=== PATIENT | female | born 1945 | race Caucasian/White ===

== ENCOUNTER 2017-06-01 09:29 | Day surgery (SDC) | payer OTHER ==
[2017-05-31 11:28] VITALS: BMI 30.1
[~2017-06-01 09:29] MED LIST: ACETAMINOPHEN 325 MG TABLET (FP) PO PRN
[2017-06-01] MEDS ORDERED: CIPROFLOXACIN 0.3% EYE DROPS 5 ML BOTTLE ONE (09:43)
[2017-06-01] MEDS ORDERED: PHENYLEPHRINE 2.5% OPHTH SOLN 15 ML BOTTLE ONE (09:43)
[2017-06-01] MEDS ORDERED: CYCLOPENTOLATE HCL 1% OPHTH SOLN 2 ML BOTTLE ONE (09:43)
[2017-06-01] MEDS ORDERED: TROPICAMIDE 1% OPHTH SOLN 15 ML BOTTLE ONE (09:43)
[2017-06-01] MEDS ORDERED: FLURBIPROFEN 0.03% OPHTH SOLN 2.5 ML BOTTLE ONE (09:43)
[2017-06-01] MEDS: CIPROFLOXACIN HCL 0.3% OPHTH 2.5ML BOTTLE OP SCH ×3 (09:45→10:00)
[2017-06-01] MEDS: CYCLOPENTOLATE HCL 1% OPHTH SOLN 2 ML BOTTLE OP SCH ×3 (09:45→10:00)
[2017-06-01] MEDS: PHENYLEPHRINE 2.5% OPHTH SOLN 15 ML BOTTLE OP SCH ×3 (09:45→10:00)
[2017-06-01] MEDS: TROPICAMIDE 1% OPHTH SOLN 15 ML BOTTLE OP SCH ×3 (09:45→10:00)
[2017-06-01] MEDS: FLURBIPROFEN 0.03% OPHTH SOLN 2.5 ML BOTTLE OP SCH ×3 (09:45→10:00)
[2017-06-01 09:59] VITALS: TEMP 97.7
[2017-06-01] MEDS ORDERED: MIDAZOLAM HCL 2 MG/2 ML SINGLE DOSE VIAL ONE (10:39)
[2017-06-01] MEDS ORDERED: TETRACAINE 0.5% OPHTH SOLN 2 ML BOTTLE OS ONE (10:43)
[2017-06-01] MEDS ORDERED: POVIDONE-IODINE 5% OPHTHALMIC PREP 30 ML SOLUTION OS ONE (10:58)
[2017-06-01] MEDS ORDERED: CHONDROITIN SU A/HYALUR SOD 1 KIT IO ONE (11:09)
[2017-06-01] MEDS ORDERED: BSS (NA/CA/MG/K) BALANCED SALT SOLUTION OPHTH SOLN 15 ML BOTTLE OS ONE (11:09)
[2017-06-01] MEDS ORDERED: LIDOCAINE HCL 1% PRESERVATIVE FREE - 30ML VIAL IO ONE (11:09)
[2017-06-01] MEDS ORDERED: EPINEPHrine/PF 1 MG/1 ML (1:1,000) AMPULE IO ONE (11:16)
[2017-06-01 13:03] VITALS: BP 110/61; PULSE 71
--- NOTE | 2017-06-01 21:17 | OP ---
DATE OF OPERATION: 06/01/2017 PREOPERATIVE DIAGNOSIS: Cataract, left eye. ASSOCIATED DIAGNOSIS: Astigmatism. POSTOPERATIVE DIAGNOSIS: Cataract, left eye. PROCEDURE: Phacoemulsification with posterior chamber intraocular lens implantation with Toric lens. The lens used SN60A T3 power of 22.5 diopters, serial number [id number]. ANESTHESIA: Topical, MAC. COMPLICATIONS: None. DESCRIPTION OF PROCEDURE: The patient was brought to the operating room and correctly identified along with the operative site. The 3, 9, and 6 o'clock positions were then marked with the patient sitting upright. She was then reclined, and the motta were reinforced under the microscope. She was then prepped and draped in the usual sterile fashion including 5% Betadine solution in the conjunctival sac and an eyelid drape. An eyelid speculum was then placed into the left eye. The 75-degree and 10 degree axes were then marked on the cornea using a Toric marker. A paracentesis port was created. Intracameral lidocaine was given. The viscoelastic was injected to inflate the anterior chamber, and a temporal clear cornea wound was created at the 10 degrees axis temporally. A continuous circular capsulorrhexis was performed. The nucleus then hydrodissected with BSS and removed with phacoemulsification via divide and conquer approach. The remaining cortical material was irrigated and aspirated from the eye. Viscoelastic was then injected to inflate the capsular bag, and the lens was injected into the capsular bag and rotated until it was approximately 15 degrees from its final position. The viscoelastic was then irrigated and aspirated from the eye, and using the irrigation and aspiration tip, the lens was rotated into its final position. All wounds were then stromally hydrated, and using a BSS cannula to fill the anterior chamber, all wounds were tested and found to be watertight. The intraocular lens was noted to be at its correct position, aligned with the corneal markings. No suture was placed. Topical vancomycin given, the eye patched and shielded, and the patient discharged from the operating room in a stable condition. SHYAM WELSH M.D. [id number] MTDD
== END 2017-06-01 12:20 | disposition home or self-care (01) ==
LOC: JASU-SURG 09:29
PROVIDERS: ATTEND Ophthalmology
PROC: 08RK3JZ Replacement of Left Lens with Synthetic Substitute, Percutaneous Approach (ICD-10-PCS; principal; 2017-06-01 11:00)
DX: H26.9 Unspecified cataract (principal); H52.202 Unspecified astigmatism, left eye

== ENCOUNTER 2017-08-25 19:04 | Emergency (ER) | payer OTHER ==
[2017-08-25 19:33] VITALS: BP 142/90; PULSE 73; TEMP 97.6; BMI 29.0
--- NOTE | 2017-08-25 19:51 | PDOC ---
History of Present Illness - General History Source: Patient Exam Limitations: No Limitations - History of Present Illness Initial Comments: 08/25/17 19:52 The patient is a 72 year old female, with a significant PMH of hypertension and arthritis, who presents to the emergency department via walk-in from urgent care with left leg swelling and left foot rash. The patient states she returned home from a flight from [place] yesterday around 3 pm. The patient states while leaving the airport in a wheelchair, secondary to hip pain from her arthritis, her friend noticed her left leg was swollen and noticed a discoloration on her left foot. The patient states she went to urgent care for evaluation of the left leg swelling and left foot rash who advised the patient to come to the ED secondary to the left leg swelling and recent immobilization. The patient denies any lower extremity pain. 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 As per the left foot rash the patient states the rash is not itchy and states she did not notice the discoloration before her trip. The patient states while in [place] she did a lot of walking with a cane. The patient denies any recent surgeries. The patient denies history of blood clots. The patient denies any familial history of cancer. The patient denies chest pain, shortness of breath, calf tenderness, headache and dizziness. Denies fever, chills, nausea, vomit, diarrhea and constipation. Denies dysuria, frequency, urgency and hematuria. Allergies: NKA Social History: None Smoker Surgical History: Cataract surgery in May PCP: Dr. Inocencia Owens <Uzair Elliott - Last Filed: 08/25/17 21:21> <Birgit Black - Last Filed: 08/26/17 01:47> - General Chief Complaint: Edema Stated Complaint: LEFT LOWER LEG SWELLING Time Seen by Provider: 08/25/17 19:14 Past History <Uzair Elliott - Last Filed: 08/25/17 21:21> - Past Medical History Anemia: No Asthma: No Cancer: No Cardiac Disorders: No CVA: No COPD: No CHF: No Dementia: No Diabetes: No GI Disorders: Yes (gerd) Disorders: No HTN: Yes Hypercholesterolemia: No Liver Disease: No Seizures: No Thyroid Disease: No Other medical history: ARTHRITIS - Suicide/Smoking/Psychosocial Hx Smoking History: Never smoked Have you smoked in the past 12 months: No Hx Alcohol Use: No Drug/Substance Use Hx: No Substance Use Type: None <Birgit Black - Last Filed: 08/26/17 01:47> - Past Medical History Allergies/Adverse Reactions: Allergies Allergy/AdvReac Type Severity Reaction Status Date / Time No Known Drug Allergies Allergy Verified 08/25/17 19:18 Home Medications: Ambulatory Orders Aspirin Coated [Ecotrin -] 81 mg PO DAILY 01/23/13 Calcium Carbonate/Vitamin D3 [Calcium 600-Vit D3 200 Tablet] 1 cap PO DAILY Cranberry Conc/Ascorbic Acid [Cranberry 12,600 mg Softgel] 1 each PO DAILY 01/23 Losartan/Hydrochlorothiazide [Losartan-Hctz 100-25 mg Tab] 1 each PO DAILY 01/23 Beta-Carotene(A) W-C and E/Min [Ocuvite (Nf)] 1 tab PO DAILY 05/31/17 Meloxicam 15 mg PO PRN 05/31/17 Pantoprazole Sodium 40 mg PO PRN PRN 05/31/17 Acetaminophen W/ Codeine #3 [Tylenol # 3 -] 1 tab PO Q6H PRN 08/25/17 Ibuprofen [Advil -] 200 mg PO TID PRN 08/25/17 Review of Systems - Review of Systems Comments:: 08/25/17 19:52 GENERAL/CONSTITUTIONAL: No fever or chills. No weakness. HEAD, EYES, EARS, NOSE AND THROAT: No change in vision. No ear pain or discharge. No sore throat. CARDIOVASCULAR: +Left leg swelling. No chest pain or shortness of breath. RESPIRATORY: No cough, wheezing, or hemoptysis. GASTROINTESTINAL: No nausea, vomiting, diarrhea or constipation. GENITOURINARY: No dysuria, frequency, or change in urination. MUSCULOSKELETAL: No joint or muscle swelling or pain. No neck or back pain. SKIN: +Left foot rash. NEUROLOGIC: No headache, vertigo, loss of consciousness, or change in strength/ sensation. ENDOCRINE: No increased thirst. No abnormal weight change. HEMATOLOGIC/LYMPHATIC: No anemia, easy bleeding, or history of blood clots. ALLERGIC/IMMUNOLOGIC: No hives or skin allergy. <Uzair Elliott - Last Filed: 08/25/17 21:21> *Physical Exam - Vital Signs Last Vital Signs Temp Pulse Resp BP Pulse Ox 97.6 F 73 16 142/90 98 08/25/17 19:05 08/25/17 19:05 08/25/17 19:05 08/25/17 19:05 08/25/17 19:05 - Physical Exam Comments: 08/25/17 19:52 GENERAL: Awake, alert, and fully oriented, in no acute distress HEAD: No signs of trauma EYES: PERRLA, EOMI, sclera anicteric, conjunctiva clear ENT: Auricles normal inspection, hearing grossly normal, nares patent, oropharynx clear without exudates. Moist mucosa NECK: Normal ROM, supple, no lymphadenopathy, JVD, or masses LUNGS: Breath sounds equal, clear to auscultation bilaterally. No wheezes, and no crackles HEART: Regular rate and rhythm, normal S1 and S2, no murmurs, rubs or gallops ABDOMEN: Soft, nontender, normoactive bowel sounds. No guarding, no rebound. No masses EXTREMITIES: (+) 1+ non pitting edema of the left distal lower leg and ankle. (+ ) Mild erythema. No tenderness or cords palpated. No proximal calf or popliteal tenderness. Normal range of motion. No clubbing or cyanosis. NEUROLOGICAL: Cranial nerves II through XII grossly intact. Normal speech, normal gait SKIN: (+) There is a fine mildly scaly rash of the anterior aspect of the anterior ankle. Warm, Dry, normal turgor. <Uzair Elliott - Last Filed: 08/25/17 21:21> - Vital Signs Last Vital Signs Temp Pulse Resp BP Pulse Ox 97.6 F 73 16 142/90 98 08/25/17 19:05 08/25/17 19:05 08/25/17 19:05 08/25/17 19:05 08/25/17 19:05 <Birgti Black - Last Filed: 08/26/17 01:47> ED Treatment Course - RADIOLOGY Radiograph Interpretation: 08/25/17 21:21 EXAM#: TYPE/EXAM: RESULT: [id number] US/DUPLEX VASCUL US-1 LEG HISTORY PROVIDED: Pain and swelling left lower extremity. Real time and doppler evaluation of the left lower extremity demonstrates the following: There is no evidence of deep venous thrombosis within the common, deep and superficial femoral veins, as well as the popliteal and posterior tibial veins. The greater saphenous vein is also patent. These veins are fully compressible, as well. There is a small Bland's cyst within the popliteal fossa measuring 1.7 x 1.1 x 0.5 cm. IMPRESSION: 1. No evidence of deep venous thrombosis. 2. Small Bland's cyst. Reported By: Pedro Kuo MD <Uzair Elliott - Last Filed: 08/25/17 21:21> Progress Note - Progress Note Progress Note: Documentation has been prepared under my direction and personally reviewed by me in its entirety. I attest that this documented accurately reflects all work, treatment, procedures and medical decision making performed by me. <Birgit Black - Last Filed: 08/26/17 01:47> Medical Decision Making - Medical Decision Making As noted above, this 9-year-old woman with a history of hypertension presents with 1 day history of left lower leg edema, seen in urgent care center where patient had gone to evaluate rash in the same area. Of note, patient traveled from [place] by air yesterday. No other risk factors for thromboembolic disease. Exam as noted. Doppler duplex study of the left lower extremity is negative for DVT. Patient discharged with instructions to elevate left leg as much as possible; she should follow-up with her general medical doctor within the next 5 days to reevaluate the edema and rash. <Birgit Black - Last Filed: 08/26/17 01:47> *DC/Admit/Observation/Transfer - Attestations Scribe Attestion: 08/25/17 19:52 Documentation prepared by Uzair Elliott, acting as director medical safety for Birgit Black MD. <Uzair Elliott - Last Filed: 08/25/17 21:21> <Birgit Black - Last Filed: 08/26/17 01:47> Diagnosis at time of Disposition: Leg edema, left - Discharge Dispostion Disposition: HOME Condition at time of disposition: Stable - Referrals Referrals: Inocencia Owens [Primary Care Provider] - - Patient Instructions Printed Discharge Instructions: Chronic Venous Insufficiency Additional Instructions: keep left leg elevated as much as possible followup with your doctor within 5 days - Post Discharge Activity
== END 2017-08-25 21:24 | disposition home or self-care (01) ==
LOC: FER 19:04
DX: R60.0 Localized edema (principal); I10 Essential (primary) hypertension; M19.90 Unspecified osteoarthritis, unspecified site
CPT/HCPCS: 93971-TC; 99282-25

== ENCOUNTER 2022-10-03 20:17 | Emergency (ER) | payer OTHER ==
[2022-10-03 20:32] VITALS: BP 155/73; PULSE 70; RESP 16; TEMP 98.3; BMI 28.9
== END 2022-10-03 22:23 | disposition home or self-care (01) ==
LOC: FER 20:17
DX: R07.9 Chest pain, unspecified (principal)
CPT/HCPCS: 36415; 82550; 82553; 84484; 93005; 93010; 99284-25